=== PATIENT | female | born 1950 | race Caucasian/White ===

== ENCOUNTER 2022-10-08 16:49 | Emergency (ER) | payer OTHER ==
[2022-10-08 18:31] LABS: Absolute Lymphocytes (CBC) 0.8 K/uL (0.7-4.9); Hematocrit 42.3 % (36.0-45.0); Lymphocytes % 6.3 % (15.3-44.8); MCV 98.2 fL (80-100); MPV 9.2 fL (7.6-11.3)
[2022-10-08 18:34] LABS: Protime INR 1.05
[2022-10-08 18:46] LABS: Magnesium 2.2 mg/dL (1.6-2.4); Potassium 3.7 mEq/L (3.5-5.1); Troponin High Sensitivity 5.8 pg/mL (<58.9)
[2022-10-08] MEDS ORDERED: MORPHINE 2 MG/ML SYR ONE ×2 (18:49→21:32)
[2022-10-08 20:10] LABS: Blood Morphology Comment NOT SEEN (NOT SEEN); Platelet Estimate ADEQ; White Blood Cell Scan OK (OK)
--- NOTE | 2022-10-08 20:15 | RAD REPORT ---
EXAM DESCRIPTION: Zack Single View10/08/2022 7:03 pm CLINICAL HISTORY: rectal bleeding COMPARISON: No comparisons TECHNIQUE: Portable AP view of the chest. FINDINGS: Mild peripheral basal airspace opacification on the right, could reflect atelectasis or ea rly airspace disease. No pneumothorax or effusion. The cardiomediastinal contours are unremarkable. IMPRESSION: Mild peripheral right basilar airspace opacification, could reflect atelectasis or early airspace disease.
[2022-10-09] MEDS ORDERED: CIPROFLOXACIN 400mg IV 400 MG/200 ML BAG IV ONE (00:34)
[2022-10-09] MEDS ORDERED: METRONIDAZOLE 500mg IVPB 500 MG/100 ML BAG IV ONE (00:35)
--- NOTE | 2022-10-09 00:41 | EDPHYS ---
Physician Documentation [facility] Name: María Borges Age: 72 yrs Sex: Female : 1950 Arrival Date: 10/08/2022 Time: 16:49 Bed 7 Private MD: ED Physician Francisco J Houston HPI: 10/08 17:55 This 72 yrs old Female presents to ER via Ambulatory with complaints of Rectal Bleeding.cp 17:55 The patient presents to the emergency department with bleeding from the rectum/anus, cp that is moderate. Onset: The symptoms/episode began/occurred this morning. Associate signs and symptoms: Pertinent positives: abdominal pain in the mid abdomen. Historical: - Allergies: 17:43 Chantix; nj1 17:43 Tylenol 3; nj1 17:43 Cortisone; nj1 - PMHx: 17:43 Hypertensive disorder; Arthritis; nj1 - Immunization history:: Client reports receiving the 2nd dose of the Covid vaccine. - Social history:: Smoking status: Patient reports the use of cigarette tobacco products, smokes one pack cigarettes per day. ROS: 18:00 Constitutional: Negative for body aches, chills, fever, poor PO intake. cp 18:00 Eyes: Negative for injury, pain, redness, and discharge. cp 18:00 ENT: Negative for drainage from ear(s), ear pain, sore throat, difficulty swallowing, difficulty handling secretions. 18:00 Cardiovascular: Negative for chest pain, edema, palpitations. 18:00 Respiratory: Negative for cough, shortness of breath, wheezing. 18:00 Abdomen/GI: Positive for abdominal pain, nausea and vomiting, diarrhea, rectal bleeding. 18:00 : Negative for urinary symptoms. 18:00 Neuro: Positive for weakness, Negative for altered mental status, dizziness, headache, syncope. 18:00 All other systems are negative. Exam: 18:05 Constitutional: The patient appears in no acute distress, alert, awake, cp non-diaphoretic, non-toxic, well developed, well nourished, uncomfortable. 18:05 Head/Face: Normocephalic, atraumatic. cp 18:05 Eyes: Periorbital structures: appear normal, Pupils: equal, round, and reactive to light and accomodation, Extraocular movements: intact throughout, Conjunctiva: normal, Sclera: no appreciated abnormality, Lids and lashes: appear normal, bilaterally. 18:05 ENT: External ear(s): are unremarkable, Nose: is normal, Mouth: Lips: moist, Oral mucosa: pink and intact, moist, Posterior pharynx: is normal, airway is patent, no erythema, no exudate. 18:05 Neck: ROM/movement: is normal, is supple, without pain, no range of motions limitations. 18:05 Chest/axilla: Inspection: normal. 18:05 Cardiovascular: Rate: normal, Rhythm: regular, Edema: is not appreciated, JVD: is not appreciated. 18:05 Respiratory: the patient does not display signs of respiratory distress, Respirations: normal, no use of accessory muscles, no retractions, labored breathing, is not present, Breath sounds: are clear throughout, no decreased breath sounds, no stridor, no wheezing. 18:05 Abdomen/GI: Inspection: abdomen appears normal, Bowel sounds: active, all quadrants, Palpation: soft, in all quadrants, moderate abdominal tenderness, in the right lower quadrant and left lower quadrant, rebound tenderness, is not appreciated, involuntary guarding, is not appreciated, Rectal exam: Stool: grossly bloody, maroon. 18:05 Back: pain, is absent, ROM is normal. 18:05 Neuro: Orientation: to person, place \T\ time. Mentation: is normal, Motor: moves all fours, strength is normal, Sensation: is normal. 18:20 ECG was reviewed by the Attending Physician. cp Vital Signs: 17:29 BP 167 / 72; Pulse 66; Resp 18; Temp 97.6; Pulse Ox 93% on R/A; Weight 61.23 kg; Height nj1 4 ft. 9 in. ; Pain 10/10; 19:20 BP 146 / 77; Pulse 81; Resp 16 S; Pulse Ox 93% on R/A; as6 21:00 BP 171 / 72; Pulse 87; Resp 15 S; Pulse Ox 95% on R/A; as6 22:00 BP 158 / 70; Pulse 65; Resp 16 S; Pulse Ox 96% on R/A; as6 10/09 00:00 BP 159 / 74; Pulse 63; Resp 16 S; Pulse Ox 96% on R/A; as6 02:08 BP 151 / 69; Pulse 67; Resp 13 S; Pulse Ox 94% on R/A; as6 02:41 BP 155 / 74; Pulse 75; Resp 13 S; Pulse Ox 94% on R/A; as6 10/08 17:29 Body Mass Index 29.21 (61.23 kg, 144.78 cm) ia1 10/08 17:29 Pain Scale: Adult nj1 MDM: 10/08 17:33 Patient medically screened. [facility] 19:00 ED course: accepting physician will be DR Strickland \T\[facility] after discussion of today's results. 10/09 00:00 Differential diagnosis: hemorrhoids, fissure, abscess, pilonidal cyst, colitis, cp diverticulitis. 00:35 Data reviewed: vital signs, nurses notes, lab test result(s), EKG, radiologic studies, cp CT scan, plain films. 00:35 I considered the following discharge prescriptions or medication management in the emergency department Medications were administered in the Emergency Department. See MAR. Care significantly affected by the following chronic conditions: Hypertension. 10/08 17:51 Order name: Basic Metabolic Panel; Complete Time: 18:52 10/08 18:52 Interpretation: Normal except: NA 135; GLUC 169; BUN 21; GFR 74. 10/08 17:51 Order name: CBC with Diff; Complete Time: 21:37 10/08 18:53 Interpretation: Normal except: WBC 12.30; MIESHA% 91.9; LYM% 6.3; MN% 1.7; NEUT A 11.3. 10/08 17:51 Order name: Magnesium; Complete Time: 18:52 10/08 17:51 Order name: NT PRO-BNP; Complete Time: 18:52 10/08 17:51 Order name: PT-INR; Complete Time: 18:52 10/08 17:51 Order name: Troponin HS; Complete Time: 18:52 10/08 17:51 Order name: Type And Screen; Complete Time: 19:10 10/08 17:51 Order name: Ptt, Activated; Complete Time: 18:52 10/08 17:51 Order name: Ova And Parasites 10/08 17:51 Order name: Rotavirus Antigen; Complete Time: 00:19 10/08 17:51 Order name: Stool Culture 10/08 17:51 Order name: CDIFF 10/08 17:55 Order name: Lactate w/ 2H reflex if indic.; Complete Time: 18:52 10/08 18:53 Interpretation: Reviewed. 10/08 17:55 Order name: Blood Culture Adult (2) 10/08 18:44 Order name: CBC Smear Scan; Complete Time: 21:37 EDME 10/09 00:48 Order name: Hemoglobin; Complete Time: 02:06 10/09 02:06 Interpretation: Abnormal: HGB 12.9. 10/09 00:48 Order name: Hematocrit; Complete Time: 02:06 10/09 02:24 Order name: ABO/RH no charge [facility] 10/08 17:51 Order name: XRAY Chest (1 view); Complete Time: 21:37 10/08 23:17 Order name: Abdomen [facility] 10/08 17:51 Order name: EKG; Complete Time: 17:53 10/08 17:51 Order name: Cardiac monitoring; Complete Time: 18:04 10/08 17:51 Order name: EKG - Nurse/Tech; Complete Time: 18:18 10/08 17:51 Order name: IV Saline Lock; Complete Time: 18:21 10/08 17:51 Order name: Labs collected and sent; Complete Time: 18:21 10/08 17:51 Order name: O2 Per Protocol; Complete Time: 18:04 10/08 17:51 Order name: O2 Sat Monitoring; Complete Time: 18:04 cp EC/27 18:20 Rate is 66 beats/min. Rhythm is regular. WA interval is normal. QRS interval is cp prolonged at 128 msec. QT interval is normal. T waves are Inverted in lead V2. Interpreted by me. Reviewed by me. Administered Medications: 18:44 Drug: morphine IVP or IV 2 mg Route: IVP; Infused Over: 4 mins; Site: right antecubital;bp 10/09 03:27 Follow up: Response: No adverse reaction as6 10/08 21:37 Drug: morphine IVP or IV 2 mg Route: IVP; Infused Over: 4 mins; Site: right antecubital;aa9 10/09 00:24 Follow up: Response: No adverse reaction aa9 00:46 Drug: metroNIDAZOLE IVPB 500 mg Volume: 100 ml; Route: IVPB; Infused Over: 30 mins; aa9 Site: left upper arm; 01:51 Follow up: Response: No adverse reaction; IV Status: Completed infusion; IV Intake: aa9 100ml 01:04 Drug: morphine IVP or IV 4 mg Route: IVP; Infused Over: 4 mins; Site: left upper arm; aa9 03:27 Follow up: Response: No adverse reaction as6 01:04 Drug: NS 0.9% IV 500 ml Route: IV; Rate: bolus; Site: left upper arm; aa9 01:51 Follow up: Response: No adverse reaction; IV Status: Completed infusion; IV Intake: aa9 500ml 01:32 Drug: NS 0.9% IV 500 ml Route: IV; Rate: 100 ml/hr; Site: left upper arm; as6 03:28 Follow up: Response: No adverse reaction; IV Status: Completed infusion; IV Intake: as6 500ml 01:51 Drug: Ciprofloxacin IVPB 400 mg Volume: 200 ml; Route: IVPB; Infused Over: 60 mins; aa9 Site: left upper arm; 03:27 Follow up: Response: No adverse reaction; IV Status: Completed infusion; IV Intake: as6 200ml 03:25 Drug: Promethazine IVP 12.5 mg Route: IVP; Site: left upper arm; aa9 03:30 Drug: morphine IVP or IV 4 mg Route: IVP; Infused Over: 4 mins; Site: left upper arm; aa9 Disposition Summary: 10/09/22 00:40 Transfer Ordered Reason: Higher level of care cp Condition: Stable cp Problem: new cp Symptoms: have improved cp Transfer Location: [facility](10/09/22 01:27) cp Accepting Physician: DR Strickland(10/09/22 03:31) aa9 Diagnosis - Indeterminate colitis cp - GI Bleed/ Gastrointestinal hemorrhage, unspecified cp Forms: - Medication Reconciliation Form cp - SBAR form cp Signatures: Dispatcher [employer] EDMS Francisco J Houston MD MD cha Mickail, Joel, PA PA jmm Page, Corey, PA PA cp Peltier, Brian, RN RN bp Slawson, Ashby, RN RN as6 Janeen Cox RN RN aa9 Albertina Ramirez RN RN nj1 Corrections: (The following items were deleted from the chart) 10/08 18:53 18:52 Normal except: WBC 12.30. cp cp 23:17 17:53 Abdomen Pelvis W Con+CT.RAD.BRZ ordered. EDMS EDMS 10/09 01:27 00:40 Doctor cp cp 01:27 00:40 [facility] cp cp 03:31 01:27 DR Strickland cp aa9
--- NOTE | 2022-10-09 00:41 | ER ---
Nurse's Notes [facility] Name: María Borges Age: 72 yrs Sex: Female : 1950 Arrival Date: 10/08/2022 Time: 16:49 Bed 7 Private MD: Diagnosis: Indeterminate colitis;GI Bleed/ Gastrointestinal hemorrhage, unspecified Presentation: 10/08 17:29 Chief complaint: Patient's son or daughter states: Severe abdominal pain since 5am this nj1 morning along with vomiting and diarrhea, at around noon, patient started to have bloody stools. Pt denies nausea at this time. 17:29 Coronavirus screen: Vaccine status: Patient reports receiving the 2nd dose of the covid nj1 vaccine. Ebola Screen: Patient denies travel to an Ebola-affected area in the 21 days before illness onset. Initial Sepsis Screen: Does the patient meet any 2 criteria? No. Patient's initial sepsis screen is negative. Does the patient have a suspected source of infection? No. Patient's initial sepsis screen is negative. Risk Assessment: Do you want to hurt yourself or someone else? Patient reports no desire to harm self or others. Onset of symptoms was October 08, 2022 at 05:00. 17:29 Method Of Arrival: Ambulatory [facility] 17:29 Acuity: BAL 3 nj1 Historical: - Allergies: 17:43 Chantix; nj1 17:43 Tylenol 3; nj1 17:43 Cortisone; nj1 - PMHx: 17:43 Hypertensive disorder; Arthritis; nj1 - Immunization history:: Client reports receiving the 2nd dose of the Covid vaccine. - Social history:: Smoking status: Patient reports the use of cigarette tobacco products, smokes one pack cigarettes per day. Screenin:32 [facility] ED Fall Risk Assessment (Adult) History of falling in the last 3 months, ko1 including since admission No falls in past 3 months (0 pts) Confusion or Disorientation No (0 pts) Intoxicated or Sedated Yes (3 pts) Impaired Gait Yes (1 pt) Mobility Assist Device Used No (0 pt) Altered Elimination No (0 pt) Score/Fall Risk Level 0 - 2 = Low Risk Oriented to surroundings, Maintained a safe environment, Educated pt \T\ family on fall prevention, incl call for assistance when getting out of bed, Assessed \T\ reinforced patient's understanding of fall precautions, Provided non-skid footwear, Hourly rounding (assess needs \T\ fall precautionary measures) done, Used ambulatory aids as needed (educated on \T\ assisted with), Used gait belt as appropriate. Abuse screen: Denies threats or abuse. Denies injuries from another. Nutritional screening: No deficits noted. Tuberculosis screening: No symptoms or risk factors identified. Assessment: 18:22 Reassessment: PT DRINKING PO CONTRAST. bp 18:32 General: Appears in no apparent distress. uncomfortable, ill, Behavior is calm, ko1 cooperative, appropriate for age. Pain: Complains of pain in abdomen. Neuro: No deficits noted. Cardiovascular: No deficits noted. Reports. Respiratory: No deficits noted. GI: Reports upper abdominal pain, rectal bleeding. : No deficits noted. EENT: No deficits noted. Derm: No deficits noted. Musculoskeletal: No deficits noted. 19:20 General: pt states pain has slightly improved with pain medication given by previous as6 shift. no other complaints or concerns at this time. 19:21 General:. Neuro: Level of Consciousness is awake, alert, obeys commands, Oriented to as6 person, place, time, situation. Respiratory: Respiratory effort is even, unlabored, Respiratory pattern is regular, symmetrical. 10/09 03:20 Reassessment: Patient appears in no apparent distress at this time. [facility] at aa9 bedside, pt c/o abd pain and nausea notified provider. Vital Signs: 10/08 17:29 BP 167 / 72; Pulse 66; Resp 18; Temp 97.6; Pulse Ox 93% on R/A; Weight 61.23 kg; Height nj1 4 ft. 9 in. ; Pain 10/10; 19:20 BP 146 / 77; Pulse 81; Resp 16 S; Pulse Ox 93% on R/A; as6 21:00 BP 171 / 72; Pulse 87; Resp 15 S; Pulse Ox 95% on R/A; as6 22:00 BP 158 / 70; Pulse 65; Resp 16 S; Pulse Ox 96% on R/A; as6 10/09 00:00 BP 159 / 74; Pulse 63; Resp 16 S; Pulse Ox 96% on R/A; as6 02:08 BP 151 / 69; Pulse 67; Resp 13 S; Pulse Ox 94% on R/A; as6 02:41 BP 155 / 74; Pulse 75; Resp 13 S; Pulse Ox 94% on R/A; as6 10/08 17:29 Body Mass Index 29.21 (61.23 kg, 144.78 cm) nj1 10/08 17:29 Pain Scale: Adult [facility] ED Course: 10/08 16:50 Patient arrived in ED. ts1 16:58 Francisco J Sharp PA is PHCP. cp 16:58 Francisco J Houston MD is Attending Physician. cp 17:38 Patito Brown, RN is Primary Nurse. ko1 17:43 Triage completed. nj1 17:44 Arm band placed on. nj1 18:15 Inserted saline lock: 20 gauge in right antecubital area, using aseptic technique. bp Blood collected. 18:21 XRAY Chest (1 view) Sent. bp 18:32 Patient has correct armband on for positive identification. Bed in low position. Call ko1 light in reach. Side rails up X2. Client placed on continuous cardiac and pulse oximetry monitoring. NIBP monitoring applied. magneto specialist on. Door closed. Noise minimized. Warm blanket given. 19:04 XRAY Chest (1 view) In Process Unspecified. EDMS 21:20 Cleaned of incontinence. Linen changed. aa9 21:26 CDIFF Sent. aa9 21:26 Ova And Parasites Sent. aa9 21:26 Stool Culture Sent. aa9 21:26 Rotavirus Antigen Sent. aa9 22:18 Missed attempt(s): 22 gauge in right wrist. Bleeding controlled, band aid applied, aa9 catheter tip intact. 22:50 Assisted to bedside commode. Repositioned patient. Cleaned of incontinence. aa9 23:31 Abdomen In Process Unspecified. EDMS 23:33 Blood Culture Adult (2) Sent. as7 10/09 01:32 Hematocrit Sent. aa9 01:32 Hemoglobin Sent. aa9 02:09 Primary Nurse role handed off by Patito Brown, RN rv1 02:11 No provider procedures requiring assistance completed. as6 03:30 Assisted to bedside commode. Cleaned of incontinence. aa9 03:31 Patient transferred, IV remains in place. aa9 Administered Medications: 10/08 18:44 Drug: morphine IVP or IV 2 mg Route: IVP; Infused Over: 4 mins; Site: right antecubital;bp 10/09 03:27 Follow up: Response: No adverse reaction as6 10/08 21:37 Drug: morphine IVP or IV 2 mg Route: IVP; Infused Over: 4 mins; Site: right antecubital;aa9 10/09 00:24 Follow up: Response: No adverse reaction aa9 00:46 Drug: metroNIDAZOLE IVPB 500 mg Volume: 100 ml; Route: IVPB; Infused Over: 30 mins; aa9 Site: left upper arm; 01:51 Follow up: Response: No adverse reaction; IV Status: Completed infusion; IV Intake: aa9 100ml 01:04 Drug: morphine IVP or IV 4 mg Route: IVP; Infused Over: 4 mins; Site: left upper arm; aa9 03:27 Follow up: Response: No adverse reaction as6 01:04 Drug: NS 0.9% IV 500 ml Route: IV; Rate: bolus; Site: left upper arm; aa9 01:51 Follow up: Response: No adverse reaction; IV Status: Completed infusion; IV Intake: aa9 500ml 01:32 Drug: NS 0.9% IV 500 ml Route: IV; Rate: 100 ml/hr; Site: left upper arm; as6 03:28 Follow up: Response: No adverse reaction; IV Status: Completed infusion; IV Intake: as6 500ml 01:51 Drug: Ciprofloxacin IVPB 400 mg Volume: 200 ml; Route: IVPB; Infused Over: 60 mins; aa9 Site: left upper arm; 03:27 Follow up: Response: No adverse reaction; IV Status: Completed infusion; IV Intake: as6 200ml 03:25 Drug: Promethazine IVP 12.5 mg Route: IVP; Site: left upper arm; aa9 03:30 Drug: morphine IVP or IV 4 mg Route: IVP; Infused Over: 4 mins; Site: left upper arm; aa9 Medication: 02:11 VIS not applicable for this client. as6 Intake: 01:51 IV: 100ml; Total: 100ml. 01:51 IV: 500ml; Total: 600ml. 03:27 IV: 200ml; Total: 800ml. as6 03:28 IV: 500ml; Total: 1300ml. as6 Outcome: 00:40 ER care complete, transfer ordered by MD. sheppard 03:30 Transferred by [facility] to [facility], Transfer form completed. aa9 03:30 Condition: stable 03:30 Instructed on the need for transfer. 03:31 Patient left the ED. aa9 Signatures: Dispatcher [employer] EDMS Francisco J Sharp PA PA cp Peltier, Brian, RN RN bp Clemente Ervin RN RN as6 Janeen Cox RN RN aa9 Patito Brown RN RN shayan1 Bell Hedrick 1 Angelika Peck as7 Albertina Ramirez RN RN nj1 Kelsea Tilley PAS PAS ts1
[2022-10-09] MEDS ORDERED: NA CHLORIDE 0.9% 1,000 ML ONE (01:04)
[2022-10-09] MEDS ORDERED: MORPHINE 4 MG/ML SYR ONE ×2 (01:04→03:23)
[2022-10-09 01:32] LABS: Hematocrit 38.9 % (36.0-45.0)
[2022-10-09] MEDS ORDERED: PROMETHAZINE INJ 25 MG/ML AMP ONE (03:23)
[2022-10-09 04:19] VITALS: TEMP 97.6
[2022-10-09 04:29] VITALS: O2SAT 94
[2022-10-09 04:31] VITALS: BP 155/74
[2022-10-09 07:26] LABS: C.diff Antigen/Toxin Ag neg : Tox neg (NEG : NEG)
--- NOTE | 2022-10-09 07:27 | EKG ---
Test Date: 2022-10-08 Test Time: 18:14:45 [employer]: ZEINA MEASUREMENT RESULTS: Intervals: Rate: 66 DC: 148 QRSD: 128 QT: 432 QTc: 452 [place]: P: 80 DC: 148 QRS: 87 T: 66 INTERPRETIVE STATEMENTS: Normal sinus rhythm Right bundle branch block Abnormal ECG No previous ECG available for comparison Electronically Signed On 10-09-22 07:25:13 CDT by Tyrone Rodrigez
--- NOTE | 2022-10-10 12:36 | RAD REPORT ---
EXAM DESCRIPTION: CT - Abdomen Pelvis Wo Contrast - 10/09/2022 6:41 am CLINICAL HISTORY: 72 years Female, rectal bleeding TECHNIQUE: Helical CT axial images are obtained from the lung bases to the pubic symphysis without I V contrast. No oral contrast was administered. Multiplanar reconstruction. This exam was performed ac cording to our departmental dose-optimization program, which includes automated exposure control, adj ustment of the mA and/or kV according to patient size and/or use of iterative reconstruction techniqu e. COMPARISON: None. FINDINGS: LUNG BASES: No basilar consolidation or effusions. LIVER: Normal in size. Normal attenuation. Left hepatic dome well-circumscribed 1.0 cm hypodense le marilynn compatible with that of simple cysts, no further workup is warranted. No suspicious hepatic lesi ons. HEPATOBILIARY: Unremarkable gallbladder. No intra- or extrahepatic ductal dilatation. SPLEEN: Normal size. PANCREAS: Normal size and contour. No focal mass. ADRENAL GLANDS: Normal size. No adrenal masses. KIDNEYS: Faint staining of the renal collecting system bilaterally from recent intravenous contrast a dministration. Bilateral kidneys are normal in size without obstructing calculi or hydronephrosis. No nephrolithiasis. No significant cysts are present. BOWEL AND MESENTERY: Small hiatal hernia. Retained contrast within the colon. Severe wall thickening of the right hepatic flexure, transverse and descending colon with pericolonic fat stranding and willie a No small or large bowel dilatation. No colonic diverticulosis. Normal appendix. No abnormal mesen teric lymphadenopathy. No free fluid or pneumoperitoneum. RETROPERITONEUM: Normal caliber abdominal aorta without aneurysm. Severe ASVD with tortuosity. No abn ormal retroperitoneal lymphadenopathy. PELVIS: Urinary bladder is suboptimally distended. Residual intravenous contrast within the urinary bladder. Status post hysterectomy. ABDOMINAL WALL: The abdominal wall is intact. BONES: No suspicious osseous lytic or blastic lesions seen. IMPRESSION: 1. Colitis as seen by severe wall thickening of the right hepatic flexure, transverse and descending colon with pericolonic fat stranding and edema. 2. Small hiatal hernia. 3. Status post hysterectomy. Electronically signed by: Elias Lewis MD 10/09/2022 12:06 AM CDT Due to temporary technical issues with the PACS/[employer] reporting system, reports are being signed by the in house radiologists without review as a courtesy to insure prompt reporting. The interpreting radiologist is fully responsible for the content of the report.
== END 2022-10-09 03:31 | disposition short-term general hospital (02) ==
LOC: EDSEX 16:49 → ER 16:49
DX: K52.3 Indeterminate colitis (principal); R10.9 Unspecified abdominal pain; I10 Essential (primary) hypertension; F17.210 Nicotine dependence, cigarettes, uncomplicated; Z88.5 Allergy status to narcotic agent; Z88.8 Allergy status to other drugs, medicaments and biological substances
CPT/HCPCS: 93005; 87040 ×2; 87045; 85025; 80048; 36415; 86900; 83735; 86850; 87177; 85610; 86901; 87046; 83605; 85730; 87209; 85018; 85014; 87324; 84484; 83880; 87425; 74176; 71045; 99285; J2550; J2270 ×2; J0744; J7030

== ENCOUNTER 2024-08-18 22:11 | Emergency (ER) | payer OTHER ==
[2024-08-18] MEDS ORDERED: ONDANSETRON 4 MG/2 ML VIAL ONE (23:08)
[2024-08-18] MEDS ORDERED: MORPHINE 4 MG/ML SYR ONE (23:08)
[2024-08-18] MEDS ORDERED: FAMOTIDINE 20 MG TAB ONE (23:22)
[2024-08-18] MEDS ORDERED: DIPHENHYDRAMINE 50 MG/ML VIAL ONE (23:23)
--- NOTE | 2024-08-19 00:28 | RAD REPORT ---
EXAM: Femur Right (accession [id number]), Pelvis (accession [id number]) CLINICAL INDICATION: 74-year-old female with pain status post fall. COMPARISON: None. TECHNIQUE: Single frontal view of the pelvis and 4 views of the right femur. FINDINGS: Poor visualization of the bony structures with limited visualization of fine bony detail se condary to radiographic technique and diffuse demineralization. There is nonvisualization of the sacrum and pubic symphysis. There is cephalad migration with remodel ing of the right femoral head with sclerosis and osteophyte formation compatible with severe degenerative change, finding which may be related to sequela of prior infectious, inflammatory proces s or trauma. Severe degenerative change of the knee with suspected bone on bone apposition of the lateral femoral joint compartment. Lucency traverses the fibular head raising the possibility of mildly displaced fracture. Further evaluation with 3 views of the knee is recommended. Atherosclerotic calcification. IMPRESSION: 1. 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 2. Lucency traverses the fibular head raising the possibility of mildly displaced fracture. Further evaluation with 3 views of the knee is recommended. 3. Nonvisualization of the sacrum and pubic symphysis with overall poor visualization of fine bony detail secondary to diffuse demineralization and radiographic technique. If there is clinical concern for fracture, further evaluation with CT is recommended. Electronically signed by: Jazmin Roca MD 08/18/2024 11:15 PM CDT RP Due to temporary technical issues with the PACS/[employer] reporting system, reports are being vesna d by the in-house radiologist without review as a courtesy to ensure prompt reporting the interpreting radiologist is fully responsible for the content of the report. Transcribed Date/Time: 08/19/2024 12:28 AM
--- NOTE | 2024-08-19 00:29 | RAD REPORT ---
EXAM: Femur Right (accession [id number]), Pelvis (accession [id number]) CLINICAL INDICATION: 74-year-old female with pain status post fall. COMPARISON: None. TECHNIQUE: Single frontal view of the pelvis and 4 views of the right femur. FINDINGS: Poor visualization of the bony structures with limited visualization of fine bony detail se condary to radiographic technique and diffuse demineralization. There is nonvisualization of the sacrum and pubic symphysis. There is cephalad migration with remodel ing of the right femoral head with sclerosis and osteophyte formation compatible with severe degenerative change, finding which may be related to sequela of prior infectious, inflammatory proces s or trauma. Severe degenerative change of the knee with suspected bone on bone apposition of the lateral femoral joint compartment. Lucency traverses the fibular head raising the possibility of mildly displaced fracture. Further evaluation with 3 views of the knee is recommended. Atherosclerotic calcification. IMPRESSION: 1. 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 2. Lucency traverses the fibular head raising the possibility of mildly displaced fracture. Further evaluation with 3 views of the knee is recommended. 3. Nonvisualization of the sacrum and pubic symphysis with overall poor visualization of fine bony detail secondary to diffuse demineralization and radiographic technique. If there is clinical concern for fracture, further evaluation with CT is recommended. Electronically signed by: Jazmin Roca MD 08/18/2024 11:15 PM CDT Due to temporary technical issues with the PACS/uberall reporting system, reports are being vesna d by the in-house radiologist without review as a courtesy to ensure prompt reporting the interpreting radiologist is fully responsible for the content of the report. Transcribed Date/Time: 08/19/2024 12:29 AM
--- NOTE | 2024-08-19 00:31 | RAD REPORT ---
EXAM: Humerus Right CLINICAL INDICATION: 74-year-old female with pain status post fall. TECHNIQUE: Three views RIGHT shoulder were obtained in AP, grayshey and transcapular projections. COMPARISON: None. FINDINGS: Limited visualization of fine bony detail secondary to radiographic technique. There is no fracture or dislocation. Degenerative change of the glenohumeral and acromioclavicular joint. There is a low riding appearance of the humeral head in relation to the acromion, finding which may be secondary to subluxation versus positioning for the examination. 3 views of the shoulder is recommended. No soft tissue abnormalities are seen. IMPRESSION: 1. Degenerative change without acute radiographic abnormality. 2. Low riding appearance of the humeral head in relation to the acromion, finding which may be seco ndary to subluxation versus positioning for the examination. Further evaluation with 3 views of the shoulder is recommended. Electronically signed by: Jazmin Roca MD 08/18/2024 11:12 PM CDT Due to temporary technical issues with the PACS/[employer] reporting system, reports are being vesna d by the in-house radiologist without review as a courtesy to ensure prompt reporting the interpreting radiologist is fully responsible for the content of the report. Transcribed Date/Time: 08/19/2024 12:30 AM
[2024-08-19 00:57] LABS: Specific Gravity 1.017 (1.005-1.030); Sqamous Epithelial <5 /HPF (None Seen); Urine Bacteria None Seen /HPF (<20); Urine Bilirubin NEGATIVE (Negative); Urine Blood Negative (Negative); Urine Clarity Turbid (Clear); Urine Color Light-Yellow (Yellow); Urine Culture Reflex Order NOT NEEDED; Urine Glucose 4+ (Negative); Urine Ketones NEGATIVE (Negative); Urine Microscopic Reflex YN ORDER UMIC; Urine Mucus Slight /HPF (None Seen); Urine Nitrite NEGATIVE (Negative); Urine Protein NEGATIVE (Negative); Urine RBC None Seen /HPF (None Seen); Urine Urobilinogen Normal (Normal); Urine WBC <5 /HPF (<5); Urine pH 5.5 (5.0-7.0)
[2024-08-19 01:01] LABS: Absolute Eosinophils 0.1 K/uL (0-0.5); Absolute Lymphocytes (CBC) 1.2 K/uL (0.7-4.9); Absolute Monocytes 0.5 K/uL (0.1-1.3); Absolute Neutrophil 5.8 K/uL (1.8-8.0); Basophils % 0.4 % (0-1.3); Hematocrit 38.2 % (36.0-45.0); Hemoglobin 12.9 g/dL (12.0-15.0); Lymphocytes % 15.8 % (15.3-44.8); MCH 32.2 pg (27.0-35.0); MCHC 33.7 g/dL (32.0-36.0); MCV 95.3 fL (80-100); Monocytes % 6.4 % (3.3-12.3); Neutrophils % 76.4 % (41.7-73.7); Nucleated Red Blood Cells % 0.5 % (0-0); Platelets 154 thou/uL (152-406); RBC Red Blood Cell Count 4.01 M/uL (3.86-4.86); Red Cell Distribution Width 15.6 % (12.1-15.2)
[2024-08-19 01:09] LABS: Anion Gap 7.3 mEq/L (5.0-15.0); Potassium 3.3 mEq/L (3.5-5.1)
--- NOTE | 2024-08-19 01:34 | RAD REPORT ---
EXAM: CT Chest, Abdomen and Pelvis Without Intravenous Contrast CLINICAL HISTORY: The patient is 74 years old and is Female; FALL TECHNIQUE: Axial computed tomography images of the chest, abdomen and pelvis without intravenous co ntrast. Sagittal and coronal reformatted images were created and reviewed. This CT exam was performed using one or more of the following dose reduction techniques: automated exposure control, adjustment of the mA and/or kV according to patient size, and/or use of iterative reconstruction technique. COMPARISON: No relevant prior studies available. FINDINGS: CHEST: Lungs: Unremarkable. No mass. No consolidation. Pleural space: Unremarkable. No significant effusion. No pneumothorax. Heart: Unremarkable. No cardiomegaly. No significant pericardial effusion. No significant c oronary artery calcifications. Mediastinum: Small hiatal hernia. ABDOMEN: Liver: Unremarkable. Gallbladder and bile ducts: Hyperdensity in the gallbladder which may be due to small gallstones. No ductal dilation. Pancreas: Unremarkable. No ductal dilation. Spleen: Unremarkable. No splenomegaly. Adrenals: Unremarkable. No mass. Kidneys and ureters: Unremarkable. No obstructing stones. No hydronephrosis. Stomach and bowel: Unremarkable. No obstruction. No mucosal thickening. PELVIS: Appendix: No findings to suggest acute appendicitis. Bladder: Unremarkable. No stones. Reproductive: Unremarkable as visualized. CHEST, ABDOMEN and PELVIS: Intraperitoneal space: Unremarkable. No significant fluid collection. No free air. Bones/joints: Degenerative changes involving the right shoulder. Degenerative changes in the right hip. Disc space narrowing with degenerative endplate changes in the spine. No acute fracture. No dislocation. Soft tissues: Unremarkable. Vasculature: Scattered atherosclerotic vascular calcifications. No aortic aneurysm. Lymph nodes: Unremarkable. No enlarged lymph nodes. IMPRESSION: No acute findings in the chest, abdomen or pelvis. Electronically signed by: Elias Chang MD 08/19/2024 01:27 AM CDT 8 Due to temporary technical issues with the PACS/[employer] reporting system, reports are being vesna d by the in-house radiologist without review as a courtesy to ensure prompt reporting the interpreting radiologist is fully responsible for the content of the report. Transcribed Date/Time: 08/19/2024 1:34 AM
--- NOTE | 2024-08-19 01:34 | RAD REPORT ---
EXAM DESCRIPTION: Head C Spine Mpr Wo Con RadLex: CT HEAD AND CERVICAL SPINE WITHOUT CONTRAST CLINICAL HISTORY: 74 years Female; fall; Bed Name: 16 TECHNIQUE: Noncontrast CT head and cervical spine All CT scans at this facility use dose modulation, iterative reconstruction, and/or weight based dosi ng when appropriate to reduce radiation dose to as low as reasonably achievable. COMPARISON: None. FINDINGS: BRAIN: Parenchyma: No acute hemorrhage, large territorial infarction, or mass effect. Mineralization in the bilateral basal ganglia. Hypodensities in the bilateral basal ganglia, likely remote lacunar infarcts versus perivascular spaces. Scattered hypodensities in white matter, likely chronic small ve ssel ischemic changes. Mild global volume loss. Ventricles and extra-axial spaces: Appropriate for age and degree of volume loss. Visualized paranasal sinuses: Clear. Mastoid air cells: Clear. Bones: No acute focal abnormality. Additional comment: Intracranial atherosclerosis. CERVICAL SPINE: Alignment: 3 mm retrolisthesis at C5-6. Vertebrae: Vertebral bodies and posterior elements are intact without acute fracture. Multilevel dege nerative changes. Extra-vertebral soft tissues: Normal. Additional comment: None. IMPRESSION: 1. No acute intracranial findings. 2. No acute fracture or subluxation of the cervical spine. Electronically signed by: Leobardo Roberts MD 08/19/2024 12:53 AM CDT RP TYG Due to temporary technical issues with the PACS/[employer] reporting system, reports are being vesna d by the in-house radiologist without review as a courtesy to ensure prompt reporting the interpreting radiologist is fully responsible for the content of the report. Transcribed Date/Time: 08/19/2024 1:34 AM
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
--- NOTE | 2024-08-19 02:28 | ER ---
Nurse's Notes [facility] Name: María Borges Age: 74 yrs Sex: Female : 1950 Arrival Date: 08/18/2024 Time: 22:11 Bed 16 Private MD: Diagnosis: Fall on same level from slipping, tripping and stumbling with subsequent striking against object;Contusion of right shoulder;Contusion of right knee;Contusion of right hip Presentation: 08/18 22:22 Chief complaint: Patient states: I fell landing on my right side. My right hip, knee, jb4 and shoulder hurt, I cut my right hand, and I have swelling from my right knee to my right foot. Coronavirus screen: At this time, the client does not indicate any symptoms associated with coronavirus-19. Ebola Screen: No symptoms or risks identified at this time. Initial Sepsis Screen: Does the patient meet any 2 criteria? No. Patient's initial sepsis screen is negative. Does the patient have a suspected source of infection? No. Patient's initial sepsis screen is negative. Risk Assessment: Do you want to hurt yourself or someone else? Patient reports no desire to harm self or others. Onset of symptoms was August 18, 2024. Transition of care: patient was not received from another setting of care. 22:22 Method Of Arrival: Wheelchair jb4 22:22 Acuity: BAL 3 jb4 22:24 Care prior to arrival: None. Mechanism of Injury: Fall from standing position. Trauma jb4 event details: Injury occurred in the [facility]. Trauma Activation: Not Applicable Physician: ED Physician; Name: ; Notified At: ; Arrived At: Physician: General Surgeon; Name: ; Notified At: ; Arrived At: Physician: Radiology; Name: ; Notified At: ; Arrived At: Physician: Respiratory; Name: ; Notified At: ; Arrived At: Physician: Lab; Name: ; Notified At: ; Arrived At: Historical: - Allergies: 22:24 Chantix; jb4 22:24 tylenol 3; jb4 22:24 Cortisone; jb4 - PMHx: 22:24 Arthritis; Hypertensive disorder; jb4 - Immunization history:: Adult Immunizations up to date. - Infectious Disease History:: Denies. - Immunization history: Last tetanus immunization: - up to date. - Social history:: Smoking status: Patient reports the use of cigarette tobacco products, smokes one-half pack cigarettes per day. Screenin:24 Abuse screen: Denies threats or abuse. Nutritional screening: No deficits noted. jb4 Tuberculosis screening: No symptoms or risk factors identified. Fall risk At risk due to age, prior history of falls, Intervention for positive screen: instructed to call for assist when getting up, side rails up. 22:30 [facility] ED Fall Risk Assessment (Adult) History of falling in the last 3 months, kj2 including since admission No falls in past 3 months (0 pts) Confusion or Disorientation No (0 pts) Intoxicated or Sedated No (0 pts) Impaired Gait Yes (1 pt) Mobility Assist Device Used Yes (1 pt) Altered Elimination No (0 pt) Score/Fall Risk Level 0 - 2 = Low Risk Maintained a safe environment, Hourly rounding (assess needs \T\ fall precautionary measures) done. Primary Survey: 22:24 NO uncontrolled hemorrhage observed. A: The client is awake and alert. The airway is jb4 patent. Breathing/Chest: Spontaneous respiratory effort, equal unlabored respirations, breath sounds clear bilaterally, regular pattern, symmetrical chest rise and fall. Circulation: No external hemorrhage present. Regular and strong central pulse, skin warm/dry/normal color. Disability Pupils are equal, round, reactive to light and accommodation. Exposure/Environment: All clothing and personal items were removed. Forensic evidence collection is not deemed to be indicated at this time. Items placed in patient belonging bag. 22:30 Reassessment Alertness and Airway: Awake and alert. The airway is patent. Airway Patent kj2 Breathing: Spontaneous respiratory effort, equal unlabored respirations, breath sounds clear bilaterally, regular pattern with symmetrical chest rise and fall. Circulation: No external hemorrhage noted. Regular and strong central pulse, skin warm/dry/normal color. Disability: Pupils Pupils are equal, round, reactive to light and accomodation. Alert. Secondary Survey: 22:24 HEENT: No deficits noted. Gastrointestinal: No deficits noted. : No deficits noted. jb4 Musculoskeletal: Swelling present in right leg Reports pain in right arm and right leg. Assessment: 22:30 General: Appears in no apparent distress. uncomfortable, Behavior is cooperative. Pain: kj2 Complains of pain in right leg and right arm Pain currently is 8 out of 10 on a pain scale. Neuro: Level of Consciousness is awake, alert, obeys commands, Oriented to person, place, time, situation. Cardiovascular: Patient's skin is warm and dry. Respiratory: Airway is patent Respiratory effort is unlabored. GI: No signs and/or symptoms were reported involving the gastrointestinal system. : No signs and/or symptoms were reported regarding the genitourinary system. 23:31 Reassessment: Patient appears in no apparent distress at this time. Patient and/or kj2 family updated on plan of care and expected duration. Pain level reassessed. Patient is alert, oriented x 3, equal unlabored respirations, skin warm/dry/pink. 23:37 Reassessment: patient sats 88-87% on room air, RN placed patient on 2.5L O2 n/c, O2 kj2 sats raised to 95%. Vital Signs: 22:20 BP 171 / 79; Pulse 75; Resp 18; Temp 98.3(O); Pulse Ox 96% on R/A; Weight 50.8 kg; oe Height 4 ft. 10 in. ; Pain 10/10; 23:30 BP 156 / 87; Pulse 81; Resp 20; kj2 23:30 Pulse Ox 87% on R/A; kj2 23:35 Pulse Ox 95% 2.5 lpm ; kj2 04/07 00:56 BP 156 / 87; Pulse 78; Resp 18; Pulse Ox 93% ; cp4 02:35 BP 113 / 90; Pulse 75; Resp 18; Pulse Ox 100% ; cp4 08/18 22:20 Body Mass Index 23.41 (50.80 kg, 147.32 cm) oe 08/18 22:20 Pain Scale: Adult oe Carli Coma Score: 08/18 22:24 Eye Response: spontaneous(4). Motor Response: obeys commands(6). Verbal Response: jb4 oriented(5). Total: 15. Trauma Score (Adult): 22:24 Eye Response: spontaneous(1); Verbal Response: oriented(1); Motor Response: obeys jb4 commands(2); Systolic BP: > 89 mm Hg(4); Respiratory Rate: 10 to 29 per min(4); Carli Score: 15; Trauma Score: 12 ED Course: 22:14 Patient arrived in ED. jj6 22:14 [facility] cp 22:14 Francisco J Houston MD is Attending Physician. cp 22:23 Triage completed. jb4 22:24 Arm band placed on right wrist. jb4 22:24 Patient has correct armband on for positive identification. Bed in low position. Call jb4 light in reach. Side rails up X 1. 22:24 Patient maintains SpO2 saturation greater than 95% on room air. Thermoregulation: warm jb4 blanket given to patient. 22:25 socks given. oe 22:30 No provider procedures requiring assistance completed. kj2 22:53 XRAY Humerus RIGHT In Process Unspecified. EDMS 22:53 XRAY Pelvis In Process Unspecified. EDMS 22:53 XRAY Femur RIGHT In Process Unspecified. EDMS 23:03 Catarina Angulo, GEORGE is Primary Nurse. kj2 23:03 Inserted saline lock: 22 gauge in left Blood collected. Flushed with 10 mL NS. oe 08/19 00:14 Chest Abd Pelvis Wo Con In Process Unspecified. EDMS 00:15 Head C Spine Mpr Wo Con In Process Unspecified. EDMS 01:45 XRAY Tib Fib RIGHT In Process Unspecified. EDMS 02:44 Provided Education on: fall. cp4 02:44 intact, bleeding controlled, No redness/swelling at site. Pressure dressing applied. cp4 Administered Medications: 08/18 23:13 Drug: morphine IVP or IV 4 mg IVP once over 4 mins Route: IVP; Infused Over: 4 mins; kj2 Site: left hand; 23:29 Follow up: Response: Pain is decreased kj2 23:13 Drug: Ondansetron IVP 4 mg IVP once; over 2 minutes Route: IVP; Site: left hand; kj2 23:30 Follow up: Response: No adverse reaction kj2 23:29 Drug: diphenhydrAMINE IVP 25 mg IVP once Route: IVP; Site: left hand; kj2 08/19 02:36 Follow up: Response: No adverse reaction cp4 08/18 23:29 Drug: Famotidine PO 10 mg PO once Route: PO; kj2 08/19 02:36 Follow up: Response: No adverse reaction cp4 Medication: 08/18 22:30 VIS not applicable for this client. kj2 Intake: 08/19 02:35 PO: 0ml; Total: 0ml. cp4 Output: 02:35 Urine: 0ml; Total: 0ml. cp4 Outcome: 02:27 Discharge ordered by MD. cp 02:44 Discharged to home via wheelchair, cp4 02:44 Condition: stable 02:44 Discharge instructions given to patient, Instructed on discharge instructions, follow up and referral plans. Demonstrated understanding of instructions, follow-up care, 02:45 Patient's length of stay in the Emergency Department was greater than 2 hours. cp4 imagingPatient's length of stay extended due to 02:45 Patient left the ED. cp4 Signatures: Dispatcher [employer] EDMS Francisco J Sharp PA PA cp Bryson, James, RN RN jb4 Jeremiah Gunderson Jennifer jj6 Potter, Christina cp4 Catarina Angulo, RN RN kj2
[2024-08-19 03:16] VITALS: TEMP 98.3
[2024-08-19 03:22] VITALS: BP 113/90; O2SAT 100
--- NOTE | 2024-08-19 06:01 | RAD REPORT ---
EXAM: XR Right Tibia and Fibula, 2 Views CLINICAL HISTORY: Pain post fall TECHNIQUE: Frontal and lateral views of the right tibia and fibula. COMPARISON: No relevant prior studies available. FINDINGS: Bones/joints: Osseous structures are osteopenic. No acute fracture. Mild to moderate tricompartment al degenerative changes at the level of the knee. No dislocation. Soft tissues: Generalized soft tissue edema most pronounced at the mid to distal lower leg and ankl e. No radiopaque foreign body. Vasculature: Atherosclerotic disease. IMPRESSION: Generalized soft tissue edema most pronounced at the mid to distal lower leg and ankle. No acute frac ture. Electronically signed by: Judson Wagner MD 08/19/2024 02:37 AM CDT Due to temporary technical issues with the PACS/[employer] reporting system, reports are being vesna d by the in-house radiologist without review as a courtesy to ensure prompt reporting the interpreting radiologist is fully responsible for the content of the report. Transcribed Date/Time: 08/19/2024 6:00 AM
== END 2024-08-19 02:45 | disposition home or self-care (01) ==
LOC: ER 22:11
DX: S40.011A Contusion of right shoulder, initial encounter (principal); S80.01XA Contusion of right knee, initial encounter; S70.01XA Contusion of right hip, initial encounter; W01.10XA Fall on same level from slipping, tripping and stumbling with subsequent striking against unspecified object, initial encounter; I10 Essential (primary) hypertension; F17.210 Nicotine dependence, cigarettes, uncomplicated
CPT/HCPCS: 85025; 81001; 80048; 36415; 86900; 86850; 86901; 70450; 71250; 72125; 74176; 72170; 73060; 73552; 73590; 96375; 96374; 99284; J1200; J2405